=== PATIENT | female | born 1935 | race Caucasian/White ===

== ENCOUNTER 2017-08-08 04:50 | Inpatient (IN) | payer MEDICARE, OTHER ==
[~2017-08-08] VITALS: Ht 154.9 cm; Wt 78.7 kg
[2017-08-08] MEDS ORDERED: LEVO0.5P PO (05:14)
[2017-08-08] MEDS ORDERED: SIMV5TAB5 PO (05:14)
[2017-08-08] MEDS ORDERED: HYDR1POW19 PO (05:15)
[2017-08-08] MEDS ORDERED: BISO5TAB2 PO (05:16)
[2017-08-08 05:23] LABS: BASOPHILS # (AUTO) 0.04 x10^3/uL (0-0.1); BASOPHILS % (AUTO) 0 % (0-1); EOSINOPHILS # (AUTO) 0.04 x10^3/uL (0-0.4); EOSINOPHILS % (AUTO) 0 % (1-7); LYMPHOCYTES # (AUTO) 2.54 x10^3/uL (1-3.4); LYMPHOCYTES % (AUTO) 18 % (22-44); MD NO; MEAN CORPUSCULAR HEMOGLOBIN 31.7 pg (27.0-34.8); MEAN CORPUSCULAR VOLUME 93.2 fL (80-100); MEAN PLATELET VOLUME 10.3 fL (7.4-10.4); MONOCYTES # (AUTO) 0.92 x10^3/uL (0.2-0.8); MONOCYTES % (AUTO) 6 % (2-9); NEUTROPHILS # (AUTO) 10.84 x10^3/uL (1.8-6.8); NEUTROPHILS % (AUTO) 75 % (42-75); PLATELET COUNT 226 x10^3/uL (130-400); RED CELL DISTRIBUTION WIDTH 14.9 % (9.6-15.2)
[2017-08-08] MEDS ORDERED: ONDANSETRON 2MG/ML, 2ML ONE (05:24)
[2017-08-08] MEDS ORDERED: MORPHINE SULFATE 4 MG/ML, 1ML ONE (05:24)
[2017-08-08] MEDS: MORPHINE SULFATE 4 MG/ML, 1ML IVPush ONE (05:30)
[2017-08-08 05:32] LABS: INTERNATIONAL NORMALIZED RATIO 0.96 (0.93-1.1)
[2017-08-08 05:39] LABS: CHLORIDE 104 mmol/L (98-107)
[2017-08-08 05:45] LABS: ALANINE AMINOTRANSFERASE 24 U/L (12-78); ALBUMIN 3.8 g/dL (3.4-5.0); ALKALINE PHOSPHATASE 67 U/L (45-117); ANION GAP 11 mmol/L (5-15); BILIRUBIN,TOTAL 0.5 mg/dL (0.2-1.0); CREATININE 1.75 mg/dL (0.55-1.02); TOTAL PROTEIN 8.4 g/dL (6.4-8.2)
[2017-08-08] MEDS ORDERED: ASPIRIN 325 MG TABLET ONE (05:57)
[2017-08-08] MEDS ORDERED: ASPIRIN 81 MG TABLET EC ONE (05:59)
[2017-08-08] MEDS ORDERED: ONDANSETRON 2MG/ML, 2ML IVPush ONE (06:00)
[2017-08-08] MEDS ORDERED: ASPIRIN 81 MG TABLET CHEW PO ONE (06:00)
[2017-08-08] MEDS ORDERED: PLEASE ENTER ALLERGIES MC SCH (06:00)
[2017-08-08] MEDS ORDERED: HEPARIN 5,000 UNITS/ML, 1ML IV ONE (07:00)
[2017-08-08] MEDS ORDERED: SODIUM CHLORIDE 0.9% 1,000 ML IV SCH ×2 (07:00→10:52)
[2017-08-08] MEDS ORDERED: HEPARIN 25,000 UNITS/500ML PMX 500 ML IV PRN (07:00)
[2017-08-08] MEDS ORDERED: HEPARIN 25,000 UNITS/500ML PMX 500 ML ONE (07:24)
[2017-08-08] MEDS ORDERED: HEPARIN 5,000 UNITS/ML, 1ML ONE (07:24)
[2017-08-08] MEDS ORDERED: DIPHENHYDRAMINE 50 MG/ML, 1ML IVPush ONE (07:30)
[2017-08-08] MEDS ORDERED: ONDANSETRON ODT 4 MG PO PRN (08:00)
[2017-08-08] MEDS ORDERED: ENALAPRILAT 1.25 MG/ML, 2ML IVPush PRN (08:00)
[2017-08-08] MEDS ORDERED: MORPHINE SULFATE 4 MG/ML, 1ML IVPush PRN (08:00)
[2017-08-08] MEDS ORDERED: DOCUSATE 100 MG CAPSULE PO PRN (08:00)
[2017-08-08] MEDS ORDERED: BISACODYL 10 MG SUPP PR PRN (08:00)
[2017-08-08] MEDS ORDERED: ACETAMINOPHEN 325 MG TABLET PO PRN (08:00)
[2017-08-08] MEDS ORDERED: hydrALAzine 20 MG/ML, 1ML IVPush PRN (08:00)
[2017-08-08] MEDS ORDERED: METOPROLOL TARTRATE 50 MG TABLET ONE (08:44)
[2017-08-08] MEDS: METOPROLOL TARTRATE 50 MG TABLET PO SCH (08:47)
[2017-08-08] MEDS ORDERED: NITROGLYCERIN 0.4 MG BOTTLE (25 TABS) SL ONE (08:57)
[2017-08-08 09:04] VITALS: BP 166/73
[2017-08-08] MEDS ORDERED: MIDAZOLAM 1 MG/ML, 5ML ONE (09:06)
[2017-08-08] MEDS ORDERED: VERAPAMIL 2.5 MG/ML, 2ML ONE (09:06)
[2017-08-08] MEDS ORDERED: TICAGRELOR 90 MG TABLET ONE (09:06)
[2017-08-08] MEDS ORDERED: FENTANYL PF 100 MCG/2ML ONE (09:06)
[2017-08-08] MEDS ORDERED: NITROGLYCERIN 5 MG/ML, 10ML ONE (09:07)
[2017-08-08] MEDS ORDERED: BIVALIRUDIN 250 MG ONE (09:07)
[2017-08-08] MEDS ORDERED: HEPARIN 1,000 UNITS/ML, 10ML ONE (09:07)
[2017-08-08] MEDS ORDERED: LIDOCAINE 2%, 2ML ONE (09:25)
[2017-08-08] MEDS ORDERED: DIPHENHYDRAMINE 50 MG/ML, 1ML ONE (09:28)
[2017-08-08] MEDS ORDERED: NITROGLYCERIN 0.4 MG/SPRAY SL PRN (09:30)
[2017-08-08] MEDS ORDERED: NITROGLYCERIN 0.4 MG BOTTLE (25 TABS) SL PRN (09:30)
[2017-08-08] MEDS ORDERED: BIVALIRUDIN 250 MG in DEXTROSE 5% 50 ML IV SCH (10:52)
[2017-08-08] MEDS: SENNA/DOCUSATE TABLET PO SCH (12:00)
[2017-08-08 14:00] VITALS: BP 145/80
[2017-08-08] MEDS ORDERED: NALOXONE 0.4 MG/ML, 1ML IVPush ONE (14:00)
[2017-08-08 17:30] LABS: MICROSCOPIC NOT IND
[2017-08-08 17:33] LABS: CULTURE INDICATED? NO
[2017-08-08 19:24] VITALS: BP 163/94
[2017-08-08] MEDS ORDERED: SIMVASTATIN 5 MG TABLET PO SCH (21:00)
[2017-08-08] MEDS ORDERED: SIMVASTATIN 10 MG TABLET ONE (21:03)
[2017-08-08] MEDS: TICAGRELOR 90 MG TABLET PO SCH (21:07)
[2017-08-09 02:59] VITALS: BP 145/82
[2017-08-09 05:38] LABS: ALBUMIN 2.9 g/dL (3.4-5.0); ANION GAP 8 mmol/L (5-15); CALCIUM 8.1 mg/dL (8.5-10.1); CHLORIDE 106 mmol/L (98-107); CREATININE 1.48 mg/dL (0.55-1.02)
[2017-08-09] MEDS: METOPROLOL TARTRATE 50 MG TABLET PO SCH (05:38)
[2017-08-09 05:48] LABS: FREE T4 (FREE THYROXINE) 1.18 ng/dL (0.76-1.46); THYROID STIMULATING HORMONE 0.715 mIU/L (0.358-3.740)
[2017-08-09 05:55] LABS: BASOPHILS # (AUTO) 0.03 x10^3/uL (0-0.1); BASOPHILS % (AUTO) 0 % (0-1); EOSINOPHILS # (AUTO) 0.09 x10^3/uL (0-0.4); EOSINOPHILS % (AUTO) 1 % (1-7); LYMPHOCYTES % (AUTO) 23 % (22-44); MD NO; MEAN CORPUSCULAR HGB CONC 34.1 g/dL (32.4-35.8); MEAN CORPUSCULAR VOLUME 93.7 fL (80-100); MEAN PLATELET VOLUME 10.5 fL (7.4-10.4); MONOCYTES # (AUTO) 0.63 x10^3/uL (0.2-0.8); MONOCYTES % (AUTO) 8 % (2-9); NEUTROPHILS # (AUTO) 5.81 x10^3/uL (1.8-6.8); NEUTROPHILS % (AUTO) 69 % (42-75); PLATELET COUNT 180 x10^3/uL (130-400); RED BLOOD COUNT 3.45 x10^6/uL (3.82-5.3); RED CELL DISTRIBUTION WIDTH 14.7 % (9.6-15.2)
[2017-08-09 07:55] VITALS: BP 122/76
[2017-08-09] MEDS: SENNA/DOCUSATE TABLET PO SCH ×2 (11:02→18:18)
[2017-08-09] MEDS: TICAGRELOR 90 MG TABLET PO SCH ×2 (11:02→20:54)
[2017-08-09 12:33] VITALS: BP 104/68
[2017-08-09 18:57] VITALS: BP 145/76
[2017-08-10 00:50] VITALS: BP 162/83
[2017-08-10 05:07] VITALS: BP 147/79
[2017-08-10] MEDS: METOPROLOL TARTRATE 50 MG TABLET PO SCH (05:10)
[2017-08-10 05:51] LABS: CHLORIDE 107 mmol/L (98-107)
[2017-08-10 05:56] LABS: ANION GAP 8 mmol/L (5-15); CALCIUM 8.7 mg/dL (8.5-10.1); CREATININE 1.63 mg/dL (0.55-1.02)
[2017-08-10 06:49] VITALS: BP 114/71
[2017-08-10] MEDS ORDERED: POTASSIUM CHLORIDE 20 MEQ TAB.ER.PRT PO ONE (07:30)
[2017-08-10] MEDS: TICAGRELOR 90 MG TABLET PO SCH ×2 (07:44→21:28)
[2017-08-10] MEDS ORDERED: TICA90TA PO (09:51)
[2017-08-10] MEDS ORDERED: ATOR20TA9 PO (09:51)
[2017-08-10] MEDS ORDERED: METO50TA82 PO (09:52)
[2017-08-10] MEDS ORDERED: ASPI-621 PO (10:54)
[2017-08-10 16:49] VITALS: BP 151/90
[2017-08-10 21:22] VITALS: BP 169/91
[2017-08-11 01:41] VITALS: BP 133/83
[2017-08-11] MEDS: METOPROLOL TARTRATE 50 MG TABLET PO SCH (06:23)
[2017-08-11 07:10] VITALS: BP 155/81
[2017-08-11 07:35] LABS: ANION GAP 8 mmol/L (5-15); CALCIUM 8.8 mg/dL (8.5-10.1); CHLORIDE 108 mmol/L (98-107); CREATININE 1.52 mg/dL (0.55-1.02)
[2017-08-11] MEDS ORDERED: FUROSEMIDE 40 MG/4 ML IV ONE (08:30)
[2017-08-11] MEDS: TICAGRELOR 90 MG TABLET PO SCH (08:54)
[2017-08-11] MEDS ORDERED: FUROSEMIDE 40 MG TABLET PO ONE (09:00)
[2017-08-11] MEDS: SENNA/DOCUSATE TABLET PO SCH (09:43)
[2017-08-11] MEDS ORDERED: POTA10CA PO (12:24)
[2017-08-11] MEDS ORDERED: FURO-93 PO (12:24)
[2017-08-11 14:14] VITALS: BP 127/81
== END 2017-08-11 17:54 | disposition home or self-care (01) | DRG 246 ==
LOC: ED 06:27 → EDIP 07:07 → 5SO 08:13
PROVIDERS: ADMIT Hospitalist; ATTEND Hospitalist
PROC: 027135Z Dilation of Coronary Artery, Two Arteries with Two Drug-eluting Intraluminal Devices, Percutaneous Approach (ICD-10-PCS; principal; 2017-08-08)
PROC: 4A023N7 Measurement of Cardiac Sampling and Pressure, Left Heart, Percutaneous Approach (ICD-10-PCS; 2017-08-08)
PROC: B2111ZZ Fluoroscopy of Multiple Coronary Arteries using Low Osmolar Contrast (ICD-10-PCS; 2017-08-08)
PROC: B2151ZZ Fluoroscopy of Left Heart using Low Osmolar Contrast (ICD-10-PCS; 2017-08-08)
DX: I21.4 Non-ST elevation (NSTEMI) myocardial infarction (principal); E43 Unspecified severe protein-calorie malnutrition; N17.9 Acute kidney failure, unspecified; I50.9 Heart failure, unspecified; I11.0 Hypertensive heart disease with heart failure; I73.9 Peripheral vascular disease, unspecified; E03.9 Hypothyroidism, unspecified; E66.9 Obesity, unspecified; E78.5 Hyperlipidemia, unspecified; E87.6 Hypokalemia; I25.5 Ischemic cardiomyopathy; Z79.82 Long term (current) use of aspirin; Z87.891 Personal history of nicotine dependence; Z90.49 Acquired absence of other specified parts of digestive tract; Z90.710 Acquired absence of both cervix and uterus; Z99.81 Dependence on supplemental oxygen; Z79.899 Other long term (current) drug therapy; Z68.32 Body mass index [BMI] 32.0-32.9, adult
CPT/HCPCS: 36415; 71045; 71046; 80048; 80053; 81003; 82040; 83735; 84100; 84439; 84443; 84484; 85025; 85379; 85520; 85610; 85730; 93005; 93458; 99156; 99157; C1769; C1894; C8929; C9600; J0583; J1644; J2250; J2310; J2405; J3010; J3490; Q0162; C1725; C1874; C1887; J1200; J7030; Q9967